=== PATIENT | male | born 1995 | race Caucasian/White ===

== ENCOUNTER 2018-11-16 14:06 | Emergency (ER) | payer OTHER ==
[~2018-11-16] VITALS: Ht 182.9 cm; Wt 72.6 kg
--- NOTE | 2018-11-16 14:29 | NUR ---
Pt ambulated into the ER with a c/o Rt elbow pain that radiates down the arm towards the forearm. Pt is also c/o Rt hip pain. 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 Pt works at [employer]. Pt stated that he has been using heat packs and takes Tylenol for his TBI. Pt does not take Motrin as it upsets his stomach. Pt has a few abrasions on the Rt side of his face/cheek and on the Lt side of his neck, near his chin. 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
--- NOTE | 2018-11-16 14:48 | NUR ---
Dr. Carmona is at the bedside evaluating the Pt.
--- NOTE | 2018-11-16 15:22 | NUR ---
Dr. Carmona is at the bedside speaking to the pt re: radiology result.
--- NOTE | 2018-11-16 15:37 | NUR ---
Patient discharged to home in stable condition. Written and verbal after care instructions given. Patient verbalizes understanding of instruction. Pt rec'd an excuse for work and a copy of the imaging findings. Pt ambulated out with a steady gait. VSS.
[2018-11-16 15:39] VITALS: BP 128/87
== END 2018-11-16 15:37 | disposition home or self-care (01) ==
LOC: ER 14:14
DX: S50.01XA Contusion of right elbow, initial encounter (principal); S70.01XA Contusion of right hip, initial encounter; Z88.8 Allergy status to other drugs, medicaments and biological substances; Y08.89XA Assault by other specified means, initial encounter; Y93.89 Activity, other specified; Y92.89 Other specified places as the place of occurrence of the external cause; Y99.8 Other external cause status
CPT/HCPCS: 73090; 99283; A4606